=== PATIENT | female | born 1940 | race Caucasian/White ===

== ENCOUNTER 2017-03-12 07:26 | Emergency (ER) | payer MEDICARE, OTHER ==
[~2017-03-12] VITALS: Ht 160 cm; Wt 73.2 kg
[~2017-03-12 07:26] MED LIST: AMBIEN5 M1 PO; ASPIRIN E.C. 8181 MG PO; BACTRIM DS 8001 TAB PO; BENTYL 20MG20 MG/TAB PO; BONIVA1 MG/ML; CIPRO500 M1 PO; CYANOCOBAL1000 MCG/1; DICYCLOMINE20 MG PO; FISH OIL500 M1 PO; FLAGYL500 M1 PO; HYDROCODONE BIT1 T48 PO; LISINOPRIL/HCTZ1 TA1 PO; LISINOPRIL20 MG PO; MULTIPLE VITAMI1 TA1 PO; NORCO 325 MG-51 TAB PO; PEPCID 20MG TAB20 MG PO; RECLAST5 MG/100 M IV; SIMVASTATIN20 MG PO; TOPCARE ASPIRIN81 M1 PO; TYLENOL 500MG500 MG PO
[2017-03-12] MEDS ORDERED: ZANTAC300 MG PO (07:41)
[2017-03-12 09:17] VITALS: BP 139/76
== END 2017-03-12 09:31 | disposition home or self-care (01) ==
LOC: ED 07:26
DX: S76.111A Strain of right quadriceps muscle, fascia and tendon, initial encounter (principal); X50.0XXA Overexertion from strenuous movement or load, initial encounter; Y92.009 Unspecified place in unspecified non-institutional (private) residence as the place of occurrence of the external cause; I10 Essential (primary) hypertension; Z85.528 Personal history of other malignant neoplasm of kidney; F17.210 Nicotine dependence, cigarettes, uncomplicated
CPT/HCPCS: L1830

== ENCOUNTER → 2017-03-15 | Outpatient (CLI) | payer MEDICARE, OTHER ==
[2017-03-12 09:17] VITALS: BP 139/76
[~2017-03-15] MED LIST changes: +ZANTAC300 MG PO
== END ==
LOC: MAMMO 12:59
DX: Z12.31 Encounter for screening mammogram for malignant neoplasm of breast (principal)
CPT/HCPCS: G0202

== ENCOUNTER → 2017-03-30 | Outpatient (CLI) | payer MEDICARE, OTHER ==
[2017-03-12 09:17] VITALS: BP 139/76
== END ==
LOC: RAD 08:15
DX: Z13.820 Encounter for screening for osteoporosis (principal); M85.80 Other specified disorders of bone density and structure, unspecified site; M81.8 Other osteoporosis without current pathological fracture

== ENCOUNTER 2017-07-06 18:45 | Emergency (ER) | payer MEDICARE, OTHER ==
[~2017-07-06] VITALS: Ht 162.6 cm; Wt 74.1 kg
[2017-07-06 19:24] LABS: BASO # 0.1 (0.02-0.10); EOS # 0.2 (0.04-0.40); EOS % 1.9 % (1.0-5.0); HEMATOCRIT 34.6 % (37.0-47.0); HEMOGLOBIN 11.6 g/dL (12.5-16.0); LYMPH# 3.3 (1.50-4.00); MEAN CELL VOLUME 89 fl (78-100); MEAN CORPUSCULAR HEMOGLOBIN 30 pg (27-31); MEAN CORPUSCULAR HGB CONC 34 g/dL (33-37); MEAN PLATELET VOLUME 8.8 fl (7.4-10.4); MONO # 0.6 (0.20-0.80); NEU # 4.9 (1.40-6.50); PLATELET COUNT 375 K/mm3 (130-400); RED BLOOD COUNT 3.88 M/mm3 (4.10-5.30); WHITE BLOOD COUNT 9.1 K/mm3 (4.8-10.8)
[2017-07-06 19:33] LABS: ALBUMIN 4.1 g/dL (3.5-5.0); BUN/CREATININE RATIO 18.5 (6.0-26.0); CALCIUM 9.3 mg/dL (8.4-10.2); POTASSIUM 4.2 mmol/L (3.6-5.0); TOTAL BILIRUBIN 0.3 mg/dL (0.2-1.3); TOTAL PROTEIN 6.8 g/dL (6.3-8.2)
[2017-07-06 19:43] LABS: CKMB ISOENZYME 1.4 ng/mL (0.6-3.5); TROPONIN-I < 0.03 ng/mL (0.00-0.06)
[2017-07-06 19:49] LABS: PROTHROMBIN TIME 9.7 SECONDS (9.0-12.0)
[2017-07-06 21:38] VITALS: BP 174/92
== END 2017-07-06 21:38 | disposition home or self-care (01) ==
LOC: ED 18:45
PROVIDERS: Nurse Practitioner Primary Care
DX: R07.89 Other chest pain (principal); I10 Essential (primary) hypertension; K21.9 Gastro-esophageal reflux disease without esophagitis; Z85.528 Personal history of other malignant neoplasm of kidney; F17.200 Nicotine dependence, unspecified, uncomplicated; M81.0 Age-related osteoporosis without current pathological fracture
CPT/HCPCS: J1885; J2270

== ENCOUNTER 2018-04-18 20:29 | Emergency (ER) | payer MEDICARE, OTHER ==
[~2018-04-18] VITALS: Ht 160 cm; Wt 74.5 kg
[2018-04-18 21:02] LABS: URINE APPEARANCE CLOUDY; URINE COLOR YELLOW
[2018-04-18 21:03] LABS: PH-URINE 7.5 (5.0 - 8.0); URINE BILIRUBIN NEGATIVE (NEGATIVE); URINE BLOOD 50 ery/uL (NEGATIVE); URINE GLUCOSE NEGATIVE (NEGATIVE); URINE KETONE NEGATIVE (NEGATIVE); URINE NITRATE NEGATIVE (NEGATIVE); URINE PROTEIN(semi-quant) NEGATIVE (NEGATIVE); URINE UROBILINOGEN NORMAL (NORMAL)
[2018-04-18 21:04] LABS: URINE LEUKOCYTE ESTERASE 2+ (NEGATIVE); URINE WBC 16-30 /hpf (0-3)
[2018-04-18] MEDS ORDERED: MACROBID 100 M100 MG PO (21:16)
[2018-04-18] MEDS ORDERED: PYRIDIUM200 M2 PO (21:16)
[2018-04-18 21:39] VITALS: BP 187/92
== END 2018-04-18 21:39 | disposition home or self-care (01) ==
LOC: ED 20:29
PROVIDERS: Physician Assistant
DX: N39.0 Urinary tract infection, site not specified (principal); I10 Essential (primary) hypertension; F17.210 Nicotine dependence, cigarettes, uncomplicated; Z79.82 Long term (current) use of aspirin; Z79.899 Other long term (current) drug therapy

== ENCOUNTER → 2018-05-02 | Outpatient (CLI) | payer MEDICARE, OTHER ==
[2018-04-18 21:39] VITALS: BP 187/92
[~2018-05-02] MED LIST changes: +MACROBID 100 M100 MG PO; +PYRIDIUM200 M2 PO
== END ==
LOC: RAD 08:56
DX: J98.11 Atelectasis (principal); J84.10 Pulmonary fibrosis, unspecified; E87.1 Hypo-osmolality and hyponatremia
CPT/HCPCS: Q9967

== ENCOUNTER → 2018-05-08 | Outpatient (CLI) | payer MEDICARE, OTHER ==
[2018-04-18 21:39] VITALS: BP 187/92
== END ==
LOC: RAD 17:41
DX: I51.9 Heart disease, unspecified (principal); I35.1 Nonrheumatic aortic (valve) insufficiency

== ENCOUNTER → 2019-05-01 | Outpatient (CLI) | payer MEDICARE, OTHER | LOC: RAD 10:37 → MAMMO 11:30 | DX: Z13.820 Encounter for screening for osteoporosis (principal); M85.88 Other specified disorders of bone density and structure, other site ==

== ENCOUNTER → 2019-05-01 | Outpatient (CLI) | payer MEDICARE, OTHER | LOC: MAMMO 10:36 | DX: Z12.31 Encounter for screening mammogram for malignant neoplasm of breast (principal) ==

== ENCOUNTER 2019-05-26 12:43 | Emergency (ER) | payer MEDICARE, OTHER ==
[~2019-05-26] VITALS: Ht 162.6 cm; Wt 73.2 kg
[~2019-05-26 12:43] MED LIST changes: +CYMBALTA60 M1 PO; -SIMVASTATIN20 MG PO; +ZOCOR20 M1 PO
[2019-05-26] MEDS ORDERED: NORCO 325 MG-51 TA1 PO (16:38)
[2019-05-26 16:39] VITALS: BP 136/73
== END 2019-05-26 17:20 | disposition home or self-care (01) ==
LOC: ED 12:43
DX: S90.32XA Contusion of left foot, initial encounter (principal); M79.7 Fibromyalgia; I10 Essential (primary) hypertension; K58.9 Irritable bowel syndrome, unspecified; G47.00 Insomnia, unspecified; F17.210 Nicotine dependence, cigarettes, uncomplicated; Z79.82 Long term (current) use of aspirin; W01.0XXA Fall on same level from slipping, tripping and stumbling without subsequent striking against object, initial encounter; Y92.009 Unspecified place in unspecified non-institutional (private) residence as the place of occurrence of the external cause
CPT/HCPCS: L4386

== ENCOUNTER 2020-09-04 11:00 | Outpatient (RCR) | payer MEDICARE ==
[~2020-09-04 11:00] MED LIST changes: +NORCO 325 MG-51 TA1 PO
== END 2020-09-22 | disposition home or self-care (01) ==
LOC: PT
DX: M47.816 Spondylosis without myelopathy or radiculopathy, lumbar region (principal); M25.561 Pain in right knee; M25.562 Pain in left knee; M53.3 Sacrococcygeal disorders, not elsewhere classified

== ENCOUNTER 2022-05-02 15:36 | Emergency (ER) | payer MEDICARE ==
[~2022-05-02] VITALS: Ht 162.6 cm; Wt 73.9 kg
[2022-05-02] MEDS ORDERED: LISINOPRIL40 MG PO (17:38)
[2022-05-02] MEDS ORDERED: CLOPIDOGREL75 M2 PO (17:39)
[2022-05-02] MEDS ORDERED: ZOLPIDEM TART10 MG PO (17:40)
[2022-05-02] MEDS ORDERED: ACETAMINOPHEN500 M5 PO (17:43)
[2022-05-02] MEDS ORDERED: BENTYL 20MG20 MG/TAB PO (17:43)
[2022-05-02] MEDS ORDERED: ZOCOR20 M1 PO (17:44)
[2022-05-02] MEDS ORDERED: FLUTICASON0.05 MG/AC NS (17:44)
[2022-05-02 17:54] LABS: BASO # 0.04 K/mm3 (0.02-0.10); EOS # 0.07 K/mm3 (0.04-0.40); EOS % 0.9 % (1.0-5.0); HEMATOCRIT 37.8 % (37.0-47.0); HEMOGLOBIN 12.9 g/dL (12.5-16.0); LYMPH# 2.21 K/mm3 (1.50-4.00); MEAN CELL VOLUME 88 fl (78-100); MEAN CORPUSCULAR HEMOGLOBIN 30 pg (27-31); MEAN CORPUSCULAR HGB CONC 34 g/dL (33-37); MEAN PLATELET VOLUME 9.3 fl (7.4-10.4); MONO # 0.47 K/mm3 (0.20-0.80); NEU # 4.85 K/mm3 (1.40-6.50); PLATELET COUNT 350 K/mm3 (130-400); RED BLOOD COUNT 4.28 M/mm3 (4.10-5.30); RED CELL DISTRIBUTION WIDTH 13.9 % (11.5-14.5); WHITE BLOOD COUNT 7.7 K/mm3 (4.8-10.8)
[2022-05-02 18:08] LABS: ALBUMIN 4.4 g/dL (3.4-4.8)
[2022-05-02 18:09] LABS: POTASSIUM 4.4 mmol/L (3.5-5.1)
[2022-05-02 18:10] LABS: CALCIUM 10.1 mg/dL (8.3-10.5)
[2022-05-02 18:11] LABS: TOTAL PROTEIN 6.9 g/dL (6.2-8.1)
[2022-05-02 18:13] LABS: TOTAL BILIRUBIN 0.7 mg/dL (0.2-1.2)
[2022-05-02] MEDS ORDERED: ZOFRAN ODT4 MG PO ×3 (18:24→18:49)
[2022-05-02] MEDS ORDERED: CIPRODEX 0.3%-7.5 ML OT ×4 (18:24→18:49)
[2022-05-02] MEDS ORDERED: MECLIZINE PO ×3 (18:24→18:49)
[2022-05-02 18:55] VITALS: BP 160/76
== END 2022-05-02 19:00 | disposition home or self-care (01) ==
LOC: ED 15:36
PROVIDERS: Family Medicine
DX: H61.22 Impacted cerumen, left ear (principal); F17.210 Nicotine dependence, cigarettes, uncomplicated
CPT/HCPCS: J2060

== ENCOUNTER → 2024-11-01 | Day surgery (SDC) | payer MEDICARE ==
[~2024-11-01] MED LIST changes: +ACETAMINOPHEN500 M5 PO; +Balanced Salt Ophth Irrig 15 ML BOTTLE *BULK OP SCH; +CIPRODEX 0.3%-7.5 ML OT; +CLOPIDOGREL75 M2 PO; +Cyclopentolate 2% Ophth Soln 1 BOTTLE *BULK OP SCH; +EPINEPHrine 1 MG/ML (1:1000) 1 ML AMP IR SCH; +FLUTICASON0.05 MG/AC NS; +Ketorolac 0.5% Ophth Soln 5 ML Bottle *BULK OP SCH; +LISINOPRIL40 MG PO; +MECLIZINE PO; +Midazolam 2 MG/2 ML VIAL IV ONE; +Phenylephrine 10% Ophth Soln 5 ML BOTTLE *BULK OP SCH; +Polymyxin B Sulfate/Trimethoprim Ophth Soln 10 ML BOTTLE *BULK OP SCH; +Proparacaine 0.5% Ophth Soln 15 ML BOTTLE *BULK OP SCH; +Tropicamide 1% Ophth Soln Bottle *BULK OP SCH; +ZOFRAN ODT4 MG PO; +ZOLPIDEM TART10 MG PO
== END | disposition home or self-care (01) ==
LOC: MSO 08:53
DX: H25.13 Age-related nuclear cataract, bilateral (principal); Z79.02 Long term (current) use of antithrombotics/antiplatelets
CPT/HCPCS: 00142; J0171; J2250; V2632